=== PATIENT | female | born 1955 | race Caucasian/White ===

== ENCOUNTER 2023-02-02 08:28 | Inpatient (IN) | payer BC ==
[~2023-02-02] VITALS: Ht 162.6 cm; Wt 91.2 kg
[2023-02-02] MEDS ORDERED: SCOPOLAMINE HYDROBROMIDE 1 MG PATCH .72 H (TRANSDERM-SCOP) TD ONE ×2 (08:40→08:43)
[2023-02-02] MEDS ORDERED: oxyCODONE HCL 10 MG TAB.ER.12H PO ONE ×2 (08:40→08:44)
[2023-02-02] MEDS ORDERED: ACETAMINOPHEN 500 MG TABLET PO ONE (08:40)
[2023-02-02] MEDS ORDERED: CELECOXIB 100 MG CAPSULE PO ONE (08:40)
[2023-02-02] MEDS ORDERED: GABAPENTIN 300 MG CAPSULE PO ONE (08:40)
[2023-02-02] MEDS ORDERED: ACETAMINOPHEN 500 MG TABLET ONE (08:43)
[2023-02-02] MEDS ORDERED: CELECOXIB 100 MG CAPSULE ONE (08:43)
[2023-02-02] MEDS ORDERED: GABAPENTIN 300 MG CAPSULE ONE (08:44)
[2023-02-02] MEDS ORDERED: CEFAZOLIN SOD 2 GM in D5W 50 ML IV ONE (09:00)
[2023-02-02] MEDS ORDERED: GLIP5TAB26 PO (10:15)
[2023-02-02] MEDS ORDERED: CRAN450T9 PO (10:15)
[2023-02-02] MEDS ORDERED: LOSA-412 PO (10:15)
[2023-02-02] MEDS ORDERED: ePHEDrine sulfate 50 MG/ML VIAL ONE (10:30)
[2023-02-02] MEDS ORDERED: NS IRRIG SOLN 1000 ML IR ONE (10:30)
[2023-02-02] MEDS ORDERED: ONDANSETRON HCL 4 MG/2 ML VIAL ONE (10:30)
[2023-02-02] MEDS ORDERED: TRANEXAMIC ACID 1,000 MG/10 ML VIAL ONE (10:30)
[2023-02-02] MEDS ORDERED: WATER FOR IRRIGATION,STERILE 1,000 ML IRRIG.SOLN IR ONE (10:30)
[2023-02-02] MEDS ORDERED: NS 1000 ML IV.SOLN IV ONE (10:30)
[2023-02-02] MEDS ORDERED: MIDAZOLAM HCL/PF 2 MG/2 ML SYRINGE ONE (10:30)
[2023-02-02] MEDS ORDERED: VANCOMYCIN HCL 1000 MG/VIAL IV ONE (10:30)
[2023-02-02] MEDS ORDERED: KETOROLAC TROMETHAMINE 30 MG VIAL ONE (10:30)
[2023-02-02] MEDS ORDERED: MORPHINE SULFATE 10MG/10ML PF AMP ONE (10:30)
[2023-02-02] MEDS ORDERED: LR 1,000 ML IV.SOLN IV ONE (10:30)
[2023-02-02] MEDS ORDERED: BUPIVACAINE /PF 0.25% 30 ML VIAL INJ ONE (10:30)
[2023-02-02] MEDS ORDERED: D5W 1,000 ML IV PRN (10:45)
[2023-02-02] MEDS ORDERED: BISACODYL 10 MG/SUPPOSITORY RC PRN (10:45)
[2023-02-02] MEDS ORDERED: DEXTROSE 50% JECT 50 ML DISP.SYRIN IVP PRN (10:45)
[2023-02-02] MEDS ORDERED: GLUCOSE (DEXTROSE) ORAL GEL -Adults PO PRN (10:45)
[2023-02-02] MEDS ORDERED: NALOXONE HCL 0.4 MG/ML AMP (NARCAN) IVP PRN ×4 (10:45→11:45)
[2023-02-02] MEDS ORDERED: DIPHENHYDRAMINE HCL 25 MG CAPSULE PO PRN (10:45)
[2023-02-02] MEDS ORDERED: LACTULOSE 20 GM/30 ML UDC PO PRN (10:45)
[2023-02-02] MEDS ORDERED: METOCLOPRAMIDE HCL 10 MG/2 ML VIAL IVP PRN ×2 (10:45→11:45)
[2023-02-02] MEDS ORDERED: traMADol HCL HCL 50 MG TABLET (ULTRAM) PO PRN (11:00)
[2023-02-02] MEDS ORDERED: HYDROmorphone 1 MG/ML INJ. CARTRIDGE IVP PRN ×5 (11:00→11:45)
[2023-02-02] MEDS ORDERED: LORATADINE 10 MG TABLET PO PRN (11:00)
[2023-02-02] MEDS ORDERED: oxyCODONE HCL 5 MG TABLET PO PRN ×2 (11:00)
[2023-02-02] MEDS ORDERED: LABETALOL 100 MG/ 20ML VIAL IVP PRN (11:45)
[2023-02-02] MEDS ORDERED: hydrALAZINE HCL 20 MG/ML VIAL IVP PRN (11:45)
[2023-02-02] MEDS ORDERED: MEPERIDINE HCL/PF 25 MG/ML DISP.SYRIN IVP PRN (11:45)
[2023-02-02] MEDS ORDERED: ONDANSETRON HCL 4 MG/2 ML VIAL IVP PRN ×2 (11:45)
[2023-02-02] MEDS ORDERED: DIPHENHYDRAMINE INJ 50 MG/ML VIAL IVP PRN (11:45)
[2023-02-02] MEDS: ACETAMINOPHEN 500 MG TABLET PO SCH ×2 (14:00→22:50)
[2023-02-02] MEDS: LR 1,000 ML IV SCH ×2 (15:19→22:51)
[2023-02-02 15:29] VITALS: BP_SYST 115; PULSE 84; RESP 18; TEMP 97.8; O2SAT 94
[2023-02-02 15:33] VITALS: BP_SYST 115; PULSE 84; RESP 18; TEMP 97
[2023-02-02 15:40] VITALS: O2SAT 95
[2023-02-02 16:45] VITALS: BP_SYST 121; PULSE 94; RESP 18; TEMP 97.7; O2SAT 95
[2023-02-02] MEDS: ceFAZolin SODIUM 2 GM in D5W 50 ML IV SCH (16:59)
[2023-02-02] MEDS: KETOROLAC TROMETHAMINE 10 MG TABLET (TORADOL) PO SCH (16:59)
[2023-02-02] MEDS: INSULIN REGULAR, HUMAN 100 UNITS/ML, 3 ML VIAL (humuLIN R) SUBCUT PRN ×2 (17:01→22:58)
[2023-02-02 20:00] VITALS: BP_SYST 135; PULSE 97; RESP 18; TEMP 97.2; O2SAT 96
[2023-02-02] MEDS: SENNOSIDES/DOCUSATE SODIUM 1 TAB TABLET(SENOKOT-S) PO SCH (22:49)
[2023-02-03] VITALS: BP_SYST 109; PULSE 90; RESP 17; TEMP 97.4; O2SAT 94
[2023-02-03] MEDS: KETOROLAC TROMETHAMINE 10 MG TABLET (TORADOL) PO SCH ×2 (00:07→08:26)
[2023-02-03] MEDS: ceFAZolin SODIUM 2 GM in D5W 50 ML IV SCH ×2 (00:27→08:24)
[2023-02-03 04:26] VITALS: O2SAT 95
[2023-02-03 06:10] LABS: BASOPHILS % (AUTO) 0.3 % (0.0-2.0); HEMATOCRIT 30.6 % (36-48); HEMOGLOBIN 10.6 g/dL (12.0-16.0); LYMPHOCYTES # (AUTO) 0.6 K/uL (1.0-5.5); LYMPHOCYTES % (AUTO) 7.8 % (20.5-51.5); MEAN CORPUSCULAR HEMOGLOBIN 33 pg (27-31); MEAN CORPUSCULAR HGB CONC 35 % (32-36); MEAN CORPUSCULAR VOLUME 95 fL (79.0-98.0); MONOCYTES # (AUTO) 0.4 K/uL (0.0-1.0); MONOCYTES % (AUTO) 5.4 % (1.7-9.3); NEUTROPHILS # (AUTO) 6.4 K/uL (1.8-7.7); NEUTROPHILS % (AUTO) 86.5 % (40.0-70.0); PLATELET COUNT (AUTO) 152 K/uL (130-430); RED BLOOD CELL COUNT(AUTO) 3.22 MIL/uL (4.2-6.2); RED CELL DISTRIBUTION WIDTH 11.9 % (9.0-15.0); WHITE BLOOD COUNT (AUTO) 7.4 K/uL (4.8-10.8)
[2023-02-03] MEDS: ACETAMINOPHEN 500 MG TABLET PO SCH (06:31)
[2023-02-03] MEDS: LR 1,000 ML IV SCH (06:32)
[2023-02-03 08:04] VITALS: BP_SYST 106; PULSE 68; RESP 16; TEMP 97.7
[2023-02-03 08:13] LABS: CALCIUM 7.9 mg/dL (8.4-11.0); CREATININE 1.02 mg/dL (0.55-1.30); POTASSIUM 4.1 mmol/L (3.5-5.1)
[2023-02-03] MEDS: SENNOSIDES/DOCUSATE SODIUM 1 TAB TABLET(SENOKOT-S) PO SCH (08:25)
[2023-02-03 08:39] VITALS: O2SAT 98
[2023-02-03] MEDS ORDERED: ASPIRIN 81 MG TAB.CHEW PO SCH (09:00)
[2023-02-03] MEDS ORDERED: CELECOXIB 200 MG CAPSULE PO SCH (11:00)
[2023-02-03 11:04] VITALS: BP_SYST 94; PULSE 64; RESP 18; TEMP 97; O2SAT 98
[2023-02-03 12:00] VITALS: BP_SYST 94; PULSE 64; RESP 18; TEMP 98; O2SAT 97
== END 2023-02-03 13:25 | disposition home health service (06) | DRG 470 ==
LOC: SMU 08:28
PROVIDERS: ADMIT Student in an Organized Health Care Education/Training Program; ATTEND Student in an Organized Health Care Education/Training Program
PROC: 0SRC0J9 Replacement of Right Knee Joint with Synthetic Substitute, Cemented, Open Approach (ICD-10-PCS; principal; 2023-02-02 10:40)
DX: M17.11 Unilateral primary osteoarthritis, right knee (principal)
CPT/HCPCS: 36415; 73560-TC; 80048; 82948; 82962; 85025; 87081; 88305; 88311; 96379; 97110-GP; 97116-GP; 97163-GP; 97530-GP; C1713; C1776; J0690; J1885; J2274; J2405; J3370; J3465; J3490; J7030; J7060; J7120

== ENCOUNTER 2023-10-05 05:25 | Day surgery (SDC) | payer BC ==
[~2023-10-05] VITALS: Ht 193 cm; Wt 49.9 kg
[~2023-10-05 05:25] MED LIST: CRAN450T9 PO; GLIP5TAB26 PO; LOSA-412 PO
[2023-10-05] MEDS: GABAPENTIN 300 MG CAPSULE ONE (06:12)
[2023-10-05] MEDS: SCOPOLAMINE HYDROBROMIDE 1 MG PATCH .72 H (TRANSDERM-SCOP) TD ONE ×2 (06:12→13:35)
[2023-10-05] MEDS: CELECOXIB 100 MG CAPSULE ONE (06:12)
[2023-10-05] MEDS: ACETAMINOPHEN 500 MG TABLET PO ONE (06:12)
[2023-10-05] MEDS ORDERED: DEXAMETHASONE SOD PHOSPHATE 4 MG/ML VIAL ONE (07:00)
[2023-10-05] MEDS ORDERED: LACTULOSE 20 GM/30 ML UDC PO PRN (07:00)
[2023-10-05] MEDS ORDERED: METOCLOPRAMIDE HCL 10 MG/2 ML VIAL IVP PRN ×2 (07:00→08:00)
[2023-10-05] MEDS ORDERED: DIPHENHYDRAMINE HCL 25 MG CAPSULE PO PRN (07:00)
[2023-10-05] MEDS: oxyCODONE HCL 10 MG TAB.ER.12H PO ONE ×2 (07:00→13:35)
[2023-10-05] MEDS ORDERED: BISACODYL 10 MG/SUPPOSITORY RC PRN (07:00)
[2023-10-05] MEDS ORDERED: HYDROmorphone 1 MG/ML INJ. CARTRIDGE IVP PRN ×4 (08:00→11:00)
[2023-10-05] MEDS ORDERED: MEPERIDINE HCL/PF 25 MG/ML DISP.SYRIN IVP PRN (08:00)
[2023-10-05] MEDS ORDERED: LORATADINE 10 MG TABLET PO PRN (11:00)
[2023-10-05] MEDS ORDERED: traMADol HCL HCL 50 MG TABLET (ULTRAM) PO PRN (11:00)
[2023-10-05] MEDS ORDERED: ONDANSETRON HCL 4 MG/2 ML VIAL IVP PRN (11:45)
[2023-10-05] MEDS: ACETAMINOPHEN 500 MG TABLET ONE (13:35)
[2023-10-05] MEDS: CELECOXIB 100 MG CAPSULE PO ONE (13:35)
[2023-10-05] MEDS: CEFAZOLIN 2 GM IVPB PREMIX 50 ML IV ONE (13:35)
[2023-10-05] MEDS: LR 1,000 ML IV SCH (13:35)
[2023-10-05] MEDS: ceFAZolin SODIUM 2 GM in D5W 100 ML IV ONE (13:35)
[2023-10-05] MEDS: GABAPENTIN 300 MG CAPSULE PO ONE (13:35)
[2023-10-05 14:00] VITALS: BP_SYST 143; PULSE 89; RESP 18; TEMP 98.2
[2023-10-05] MEDS: KETOROLAC TROMETHAMINE 10 MG TABLET (TORADOL) PO SCH (14:00)
[2023-10-05] MEDS: ACETAMINOPHEN 500 MG TABLET PO SCH (14:00)
[2023-10-05 15:55] VITALS: BP_SYST 143; PULSE 89; RESP 18; TEMP 98.2; O2SAT 97
[2023-10-05] MEDS: HYDROmorphone 1 MG/ML INJ. CARTRIDGE IVP PRN (18:08)
[2023-10-05] MEDS: ceFAZolin SODIUM 2 GM in D5W 50 ML IV SCH (18:51)
[2023-10-05 20:00] VITALS: BP_SYST 154; PULSE 69; RESP 16; TEMP 98.7; O2SAT 94
[2023-10-05] MEDS: SENNOSIDES/DOCUSATE SODIUM 1 TAB TABLET(SENOKOT-S) PO SCH (20:39)
[2023-10-05] MEDS: oxyCODONE HCL 5 MG TABLET PO PRN ×2 (20:40→20:41)
[2023-10-05 23:37] VITALS: O2SAT 94
[2023-10-06 00:17] VITALS: BP_SYST 146; PULSE 98; RESP 16; TEMP 98.3; O2SAT 95
[2023-10-06 05:05] LABS: BASOPHILS % (AUTO) 0.1 % (0.0-2.0); HEMOGLOBIN 10.6 g/dL (12.0-16.0); LYMPHOCYTES # (AUTO) 0.8 K/uL (1.0-5.5); LYMPHOCYTES % (AUTO) 8.9 % (20.5-51.5); MEAN CORPUSCULAR HEMOGLOBIN 33 pg (27-31); MEAN CORPUSCULAR HGB CONC 36 % (32-36); MEAN CORPUSCULAR VOLUME 94 fL (79.0-98.0); MONOCYTES # (AUTO) 0.5 K/uL (0.0-1.0); MONOCYTES % (AUTO) 6.3 % (1.7-9.3); NEUTROPHILS # (AUTO) 7.3 K/uL (1.8-7.7); NEUTROPHILS % (AUTO) 84.7 % (40.0-70.0); PLATELET COUNT (AUTO) 160 K/uL (130-430); RED BLOOD CELL COUNT(AUTO) 3.18 MIL/uL (4.2-6.2); RED CELL DISTRIBUTION WIDTH 12.3 % (9.0-15.0); WHITE BLOOD COUNT (AUTO) 8.6 K/uL (4.8-10.8)
[2023-10-06 05:33] LABS: ALANINE AMINOTRANSFERASE 11 U/L (12-78); ALBUMIN 2.9 g/dL (3.4-4.8); ANION GAP 12 (5-15); ASPARTATE AMINOTRANSFERASE < 5 U/L (10-37); CALCIUM 8.7 mg/dL (8.4-11.0); CARBON DIOXIDE 23 mmol/L (23-29); CHLORIDE 104 mmol/L (98-107); CREATININE 1.05 mg/dL (0.55-1.30); GFR AFRICAN AMERICAN 67 mL/min (>90); GFR NON AFRICAN-AMERICAN 56 mL/min (>90); GLUCOSE 156 mg/dL (74-106); POTASSIUM 3.9 mmol/L (3.5-5.1); SODIUM SERUM 139 mmol/L (136-145); TOTAL BILIRUBIN 0.7 mg/dL (0.0-1.0); TOTAL PROTEIN, SERUM 6.3 g/dL (6.4-8.3); UREA NITROGEN, BLOOD 16 mg/dL (8-21)
[2023-10-06 08:37] VITALS: BP_SYST 122; PULSE 68; RESP 18; TEMP 98.5; O2SAT 97
[2023-10-06] MEDS: ASPIRIN 81 MG TAB.CHEW PO SCH (09:09)
[2023-10-06] MEDS: CELECOXIB 200 MG CAPSULE PO SCH (11:14)
[2023-10-06 11:16] VITALS: BP_SYST 118; PULSE 66; RESP 18; TEMP 97.6; O2SAT 98
== END 2023-10-06 11:45 | disposition home or self-care (01) ==
LOC: SDS 05:25 → SMU 05:25 → SDS 10-06 11:45
PROVIDERS: ATTEND Student in an Organized Health Care Education/Training Program
DX: M17.12 Unilateral primary osteoarthritis, left knee (principal); I10 Essential (primary) hypertension; E11.9 Type 2 diabetes mellitus without complications; E78.5 Hyperlipidemia, unspecified; J45.909 Unspecified asthma, uncomplicated; Z91.040 Latex allergy status; Z98.890 Other specified postprocedural states; Z79.899 Other long term (current) drug therapy
CPT/HCPCS: 87081; 27447; 97162; 73560; 97530 ×2; 97110 ×2; 97116 ×2; 80053; 85025; 36415; 82948; 88305; 88311; 64447; 96379; J3490 ×2; J0690; J1100; J3465; J2405; J2704; J3370; J3010; J1170; J7060; J7120; C1713 ×2; C1776